=== PATIENT | male | born 1960 | race Hispanic/Latino ===

== ENCOUNTER 2016-11-19 08:23 | Emergency (ER) | payer MEDICARE ==
[2016-11-19 08:38] VITALS: BMI 52.9
--- NOTE | 2016-11-19 08:38 | ED PDOC ---
Arrival/HPI - General Time Seen by Provider: 11/19/16 08:37 Historian: Family, EMS - History of Present Illness Narrative History of Present Illness (Text): 11/19/16 08:38 Patient is a 56 year old male with a past medical history that includes diabetes , htn, dvt, presenting to the emergency department after witnessed cardiac arrest at 07:30 this morning. Girlfriend reports he came home from work and after taking a shower he complained of shortness of breath before collapsing. EMS reports BLS arrived first and then ALS arrived, starting CPR and ACLS protocol. 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 Patient's fingerstick was 214 in the field. PMD: Dr. Ramsey Time/Duration: 1 hour Symptom Onset: Sudden Past Medical History - Provider Review Nursing Documentation Reviewed: Yes - Infectious Disease Hx of Infectious Diseases: None - Tetanus Immunization Tetanus Immunization: Unknown - Cardiac Hx Cardiac Disorders: Yes (UT, CABG) Hx Hypertension: Yes Hx Peripheral Vascular Disease: Yes - Endocrine/Metabolic Hx Endocrine Disorders: Yes Hx Diabetes Mellitus Type 2: Yes - Hematological/Oncological Hx Blood Transfusions: No Hx Blood Transfusion Reaction: No - Integumentary Hx Dermatological Disorder: Yes Other/Comment: infected leg wound,STASIS ULCER LESLYE LE. 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 ON SUBOXONE) - Surgical History Hx Open Heart Surgery: Yes - Anesthesia Hx Anesthesia: (of CABG) Hx Anesthesia Reactions: No Hx Malignant Hyperthermia: No - Suicidal Assessment Feels Threatened In Home Enviroment: No Family/Social History - Physician Review Nursing Documentation Reviewed: Yes Family/Social History: Unknown Family HX Smoking Status: Never Smoked Hx Alcohol Use: No Hx Substance Use: Yes (OPIOD ABUSE. ON SUBOXONE) Hx Substance Use Treatment: No Allergies/Home Meds Allergies/Adverse Reactions: Allergies No Known Allergies Allergy (Verified 11/19/16 08:37) Home Medications: Home Meds Medication Instructions Recorded Confirmed Aspirin [Armaan Chewable Aspirin] 81 mg PO DAILY 09/19/12 06/17/16 ALPRAZolam [Xanax] 1 mg PO BID 06/17/16 06/17/16 Buprenorphine HCl/Naloxone HCl 1 rainer SL PRN 06/17/16 06/17/16 [Suboxone 2 mg-0.5 mg] MetFORMIN [glucoPHAGE] 500 mg PO BID 06/17/16 06/17/16 Metoprolol Succinate [Toprol XL] 12.5 mg PO MWF 06/17/16 06/17/16 Pravastatin Sodium [Pravachol] 10 mg PO DAILY 06/17/16 06/17/16 Zolpidem Tartrate [Ambien] 10 mg PO HS 06/17/16 06/17/16 fluvoxaMINE [Luvox] 100 mg PO HS 06/17/16 06/17/16 Review of Systems - Review of Systems Systems not reviewed;Unavailable: Other (cardiac arrest) Physical Exam Vital Signs Pulse 11/19/16 08:38 0 L Pulse: Pulseless Respiratory Rate: Apneic - Systems Exam Head: Present: Atraumatic, Normocephalic Pupils: Present: Other (fix and dilated) Pharnyx: Present: Other (no gag, ETT in place) Respiratory/Chest: Present: Clear to Auscultation (with bagging) Cardiovascular: Present: Other (pulseless) Abdomen: No: Distention Neurological: Present: Other (GCS:3) Medical Decision Making ED Course and Treatment: Patient seen immediately on arrival. On arrival, patient intubated by EMS with CPR in progress. Arrest at 730 with arrival to ED at 8:23 (downtime approximately 50 minutes) Tube placement confirmed in the ER. [id number] in ER. CPR was continued under ACLS. Initial rhythm was PEA. Epi was given. Second rhythm was asystole as well as 3rd and 4th rhythm check. Epi x 4 given. Ultrasound showed no cardiac activity. Patient has been in cardiac arrest for >60 minutes, was fixed and dilated, with no gag, and no cardiac activity on ultrasound. 11/19/16 08:33 Patient's pronounced at 08:33. MD spoke to patient's girlfriend and patient's sister. BRITTA Manzo was notified and he recommended medical records secretary autopsy. Nurse spoke to medical records secretary. Pending their decision. EDRS form completed by ED MD. - Scribe Statement The provider has reviewed the documentation as recorded by the Angel Luis Galvin Provider Scribe Attestation: All medical record entries made by the Scribe were at my direction and personally dictated by me. I have reviewed the chart and agree that the record accurately reflects my personal performance of the history, physical exam, medical decision making, and the department course for this patient. I have also personally directed, reviewed, and agree with the discharge instructions and disposition. Disposition/Present on Arrival - Present on Arrival Any Indicators Present on Arrival: Yes History of DVT/PE: Yes History of Uncontrolled Diabetes: Yes Urinary Catheter: No History Surgical Site Infection Following: CABG - Mediastinitis, None - Disposition Have Diagnosis and Disposition been Completed?: Yes Diagnosis: Cardiac arrest Disposition: WITH WITHOUT AUTOPSY Disposition Time: 08:33 Condition:
[2016-11-19 08:39] VITALS: PULSE 0
== END 2016-11-19 16:04 ==
LOC: ED 08:23
DX: I46.9 Cardiac arrest, cause unspecified (principal); I25.2 Old myocardial infarction; I10 Essential (primary) hypertension; E11.9 Type 2 diabetes mellitus without complications; Z86.718 Personal history of other venous thrombosis and embolism; Z95.1 Presence of aortocoronary bypass graft